=== PATIENT | female | born 1980 | race Caucasian/White ===

== ENCOUNTER 2018-05-01 10:53 | Emergency (ER) | payer OTHER ==
--- NOTE | 2018-05-01 11:27 | UC ---
Dizzy HPI HPI Summary: 37 year old female presents with 2 week history of intermittent dizziness. Describes as a "lightheadedness, fogginess, and vertigo" that is more profound in the morning. States has several episodes a day that last seconds to minutes. Does not associate with any particular activity although does state she frequently notices while a vacuuming. Denies headache, photophobia, visual disturbances, facial droop, speech difficulties, extremity weakness, numbness, or tingling, ear pain, tinnitus, chest pain, palpitations, shortness of breath, abdominal pain, nausea, vomiting, or diarrhea. She was receiving DepoProvera injections but stopped these in October 2017 and still has not had her menses. She is being evaluated for PCOS and has ultrasound scheduled. She was started on oral control approximately 3 weeks ago and just started her spacer pills. Negative test 2 weeks ago at [facility]. has not been sexually active since that time. - History Of Current Complaint Chief Complaint: UCDizziness Stated Complaint: LIGHTHEADED Time Seen by Provider: 05/01/18 11:07 Hx Obtained From: Patient Hx Last Menstrual Period: depo Onset/Duration: Sudden Onset, Lasting Weeks - 2 Timing: Intermittent Episode Lasting - seconds to minutes Severity Currently: None Pain Intensity: 0 Character: Lightheaded - See HPI Aggravating Factor(s): Nothing Alleviating Factor(s): Nothing Associated Signs And Symptoms: Negative: Nausea, Vomiting, Diaphoresis, Tinnitus , Chest Pain, SOB, Palpitations, Unsteady Gait, Visual Changes - Allergies/Home Medications Allergies/Adverse Reactions: Allergies Allergy/AdvReac Type Severity Reaction Status Date / Time acetaminophen [From Vicodin] Allergy Hives Verified 05/01/18 11:04 hydrocodone [From Vicodin] Allergy Hives Verified 05/01/18 11:04 squid oil Allergy Hives Uncoded 05/01/18 11:05 PMH/Surg Hx/FS Hx/Imm Hx Previously Healthy: Yes Endocrine History: Diabetes - Gestational - Surgical History Surgical History: Yes Surgery Procedure, Year, and Place: - Family History Known Family History: Positive: Cardiac Disease, Hypertension, Diabetes, Other - Parkinson's, Alzheimer's - Social History Occupation: Employed Full-time Lives: With Family Alcohol Use: Rare Substance Use Type: None Smoking Status (MU): Never Smoked Tobacco - Immunization History Most Recent Tetanus Shot: 11/2006 Review of Systems Constitutional: Negative Eyes: Negative ENT: Negative Respiratory: Negative Cardiovascular: Negative Gastrointestinal: Negative Neurological: Other - See HPI Is Patient Immunocompromised?: No All Other Systems Reviewed And Are Negative: Yes Physical Exam Triage Information Reviewed: Yes Appearance: Well-Appearing, No Pain Distress, Obese Vital Signs: Initial Vital Signs Temp 98.2 F 05/01/18 11:01 Pulse 82 05/01/18 11:01 Resp 16 05/01/18 11:01 BP 131/86 05/01/18 11:01 Pulse Ox 100 05/01/18 11:01 Vital Signs Reviewed: Yes Eye Exam: Normal ENT: Positive: Hearing grossly normal, Pharynx normal, TMs normal, Uvula midline. Negative: Nasal congestion, Nasal drainage Neck: Positive: Supple, Nontender, No Lymphadenopathy Respiratory: Positive: Lungs clear, Normal breath sounds, No respiratory distress Cardiovascular: Positive: RRR, No Murmur, Pulses Normal, Brisk Capillary Refill Abdomen Description: Positive: Nontender, No Organomegaly, Soft. Negative: CVA Tenderness (R), CVA Tenderness (L), Distended, Guarding Bowel Sounds: Positive: Present Musculoskeletal: Positive: Strength Intact Neurological: Positive: Alert, Muscle Tone Normal, Other: - AAOx4. PERRLA. Cranial nerves II-XII grossly intact. ALCAZAR equal and strong. Coordination and fine motor intact. DTRs 2+. Skin Exam: Normal Diagnostics - EKG Cardiac Rate: NL - Rate 88 Cardiac Rhythm: Sinus: Normal Ectopy: None ST Segment: Normal EKG Comparison: No Significant Change - Compared to EKG from 11/19/2015 Dizzy Course/Dx - Course Course Of Treatment: 37 year old female with 2 week history of intermittent dizziness. H&P are not suggestive of a cardiac or neurological origin. Exam was unremarkable except for a mildly elevated BP. EKG normal. She is not orthostatic. FSBG WNL. Urine negative. Discussed with patient that her complaints have a broad differential that would require a work up beyond the capacity of UC. Offered treatment options including further eval in the ED or close f/u with PCP. She is electing to f/u with PCP at this time. Reviewed warning symptoms that would require immediate evaluation in the ED with the patient. She verbalizes understanding and agrees with POC. - Differential Dx/Diagnosis Differential Diagnosis/HQI/PQRI: Benign Paroxysmal Positional Vertigo, Hypovolemia, Vasovagal Reaction, Other - Provider Diagnoses: Dizziness Discharge - Sign-Out/Discharge Documenting (check all that apply): Patient Departure All imaging exams completed and their final reports reviewed: No Studies - Discharge Plan Condition: Stable Disposition: HOME Patient Education Materials: Dizziness (ED) Forms: *Work Release Referrals: Lin Waters MD [Primary Care Provider] - 5 Days Additional Instructions: The EKG performed in the clinic today was normal as was your finger stick glucose and orthostatic vital signs. Your urine was negative. Your blood pressure reading was slightly elevated today. I do not have a good explanation for your symptoms at this time however I also do not see any signs of illness requiring an emergent evaluation. I would recommend that follow up with your primary care provider within 5-7 days to have your blood pressure rechecked and for further evaluation. Seek immediate medical attention in the emergency room if you develop sudden severe headache, visual disturbances, difficulty speaking, persistent dizziness , you lose consciousness, have chest pain, feel like your heart is racing or skipping beats, have shortness of breath, or any worsening of symptoms. - Billing Disposition and Condition Condition: STABLE Disposition: Home
[2018-05-01 11:56] VITALS: BP 159/87
== END 2018-05-01 12:30 | disposition home or self-care (01) ==
LOC: UCEAST 10:53
DX: R42 Dizziness and giddiness (principal); Z32.02 Encounter for pregnancy test, result negative; Z88.6 Allergy status to analgesic agent; Z88.5 Allergy status to narcotic agent
CPT/HCPCS: 84702; 93005; 99212; G0463

== ENCOUNTER 2018-07-15 13:49 | Emergency (ER) | payer OTHER ==
[2018-07-15 14:10] VITALS: BP 137/83
--- NOTE | 2018-07-15 15:13 | UC ---
Skin Complaint HPI - HPI Summary HPI Summary: 37 yo female presents with left ankle pain and swelling with ?bug bite to area. She tells me that 2 days ago she noticed some itching to her left posterior ankle and saw a bug bite there. Since that time the area has become red, swollen , and warm to touch. She is unsure what bit her. Denies fever or chills. - History of Current Complaint Chief Complaint: UCSkin Time Seen by Provider: 07/15/18 15:07 Stated Complaint: SKIN COMPLAINT LEFT ANKLE Hx Obtained From: Patient Hx Last Menstrual Period: unsure Onset/Duration: Gradual Onset Onset Severity: Mild Current Severity: Mild Pain Intensity: 2 Pain Scale Used: 0-10 Numeric - Allergy/Home Medications Allergies/Adverse Reactions: Allergies Allergy/AdvReac Type Severity Reaction Status Date / Time acetaminophen [From Vicodin] Allergy Hives Verified 05/01/18 11:04 hydrocodone [From Vicodin] Allergy Hives Verified 05/01/18 11:04 squid oil Allergy Hives Uncoded 05/01/18 11:05 Home Medications: Home Medications Acetaminophen [Pain Reliever] 1,000 mg PO ONCE PRN 07/15/18 [History Confirmed 07/15/18] Mometasone/Formoter 200/5 MDI* [Dulera 200/5 MDI*] 2 puff INH DAILY 07/15/18 [ History Confirmed 07/15/18] PMH/Surg Hx/FS Hx/Imm Hx Respiratory History: Asthma - Surgical History Surgical History: Yes Surgery Procedure, Year, and Place: - Family History Known Family History: Positive: Cardiac Disease, Hypertension, Diabetes, Other - Parkinson's, Alzheimer's - Social History Occupation: Employed Full-time Lives: With Family Alcohol Use: Rare Substance Use Type: None Smoking Status (MU): Never Smoked Tobacco - Immunization History Most Recent Tetanus Shot: 11/2006 Review of Systems All Other Systems Reviewed And Are Negative: Yes Constitutional: Positive: Negative Skin: Positive: Other - Left ankle bug bite with redness and swelling Respiratory: Positive: Negative Cardiovascular: Positive: Negative Neurovascular: Positive: Negative Musculoskeletal: Positive: Negative Neurological: Positive: Negative Psychological: Positive: Negative Physical Exam - Summary Physical Exam Summary: GENERAL: NAD. WDWN. No pain distress. SKIN: LEFT ANKLE: Posterior aspect with two small superficial puncture wounds. Moderate edema and erythema extending 3.0cm circumstantially. Mild warmth. No streaking, bleeding, or drainage. NECK: Supple. Nontender. No lymphadenopathy. CHEST: No accessory muscle use. Breathing comfortably and in no distress. CV: Pulses intact. Cap refill <2seconds MSK: Left ankle: FROM without pain NEURO: Alert. PSYCH: Age appropriate behavior. Triage Information Reviewed: Yes Vital Signs: Initial Vital Signs Temp 97.5 F 07/15/18 14:05 Pulse 94 07/15/18 14:05 Resp 18 07/15/18 14:05 BP 137/83 07/15/18 14:05 Pulse Ox 96 07/15/18 14:05 Vital Signs Reviewed: Yes Course/Dx - Course Course Of Treatment: Bug bite with cellulitis left ankle - Diagnoses Provider Diagnosis: Cellulitis, Bug bite Discharge - Sign-Out/Discharge Documenting (check all that apply): Patient Departure All imaging exams completed and their final reports reviewed: No Studies - Discharge Plan Condition: Stable Disposition: HOME Prescriptions: Cephalexin CAP* [Keflex CAP*] 500 mg PO BID #10 cap Patient Education Materials: Cellulitis (DC), Insect Bite or Sting (ED) Forms: *Work Release Referrals: Halie Hernandez MD [Primary Care Provider] - Additional Instructions: If you develop a fever, shortness of breath, chest pain, new or worsening symptoms - please call your PCP or go to the ED. Your blood pressure was mildly elevated at todays visit. Please see your primary provider within 4 weeks for recheck and re-evaluation. Rest and elevate your foot/ankle as much as possible. Apply ice 20minutes a few times a day - Billing Disposition and Condition Condition: STABLE Disposition: Home
== END 2018-07-15 15:23 | disposition home or self-care (01) ==
LOC: UCEAST 13:49
DX: S90.562A Insect bite (nonvenomous), left ankle, initial encounter (principal); L03.116 Cellulitis of left lower limb; W57.XXXA Bitten or stung by nonvenomous insect and other nonvenomous arthropods, initial encounter; Y92.9 Unspecified place or not applicable; Z88.6 Allergy status to analgesic agent; Z88.5 Allergy status to narcotic agent
CPT/HCPCS: 99212; G0463